=== PATIENT | male | born 1980 | race Caucasian/White ===

== ENCOUNTER 2020-09-23 17:17 | Emergency (ER) | payer OTHER, SELFPAY ==
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
[2020-09-23 17:17] VITALS: BP 123/99; PULSE 116; RESP 28; TEMP 37.2; O2SAT 97
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
[2020-09-23] MEDS: ONDANSETRON INJ 4 MG/2 ML VIAL IV PUSH (19:06)
[2020-09-23] MEDS: MORPHINE SULFATE (*CRX) 4 MG/ML INJ IV PUSH (19:06)
[2020-09-23 19:11] VITALS: BP 123/89; PULSE 89; RESP 18; TEMP 36.6; O2SAT 100
== END 2020-09-23 19:27 | disposition home or self-care (01) ==
PROVIDERS: Emergency Provider Nurse Practitioner; PCP Family Medicine
DX: S32.040A Wedge compression fracture of fourth lumbar vertebra, initial encounter for closed fracture (principal); V49.3XXA Car occupant (driver) (passenger) injured in unspecified nontraffic accident, initial encounter
CPT/HCPCS: 72100; 96374; 96375; 99284; J2270; J2405